=== PATIENT | male | born 1985 | race Caucasian/White ===

== ENCOUNTER 2022-03-10 08:58 | Emergency (ER) | payer SELFPAY ==
[~2022-03-10] VITALS: Ht 190.5 cm; Wt 163.0 kg
[2022-03-10] VITALS (14 sets, daily range): BP systolic 130–154; BP diastolic 79–99
[~2022-03-10 08:58] MED LIST: ULTRAM50 M1 PO
[2022-03-10 11:23] LABS: ALBUMIN 4.2 g/dL (3.2-5.0); ALKALINE PHOSPHATASE 91 u/l (38-126); ANION GAP 11 (6-22 (CALC)); BILIRUBIN, TOTAL 0.6 mg/dL (0.0-1.4); BUN 12 mg/dL (9-20); BUN/CREATININE RATIO 13 (12-20 (CALC)); CARBON DIOXIDE 30 mmol/l (22-30); CHLORIDE 103 mmol/l (95-108); GFR FOR AFR.AMER. > 60 ML/MIN (>=60 (CALC)); GFR OTHER RACES > 60 ML/MIN (>=60 (CALC)); POTASSIUM 4.4 mmol/l (3.5-5.1); SGOT/AST 32 u/l (17-59); SODIUM 139 mmol/l (137-146); TOTAL PROTEIN 7.9 g/dL (6.3-8.2)
[2022-03-10 12:22] LABS: HEMATOCRIT 42.7 % (39.0-50.0); HEMOGLOBIN 13.4 g/dl (14.0-18.0); IMMATURE GRANULOCYTES 1.3 % (0.0-5.0); MEAN CELL VOLUME 90.9 fL CALC (80.0-100.0); MEAN CORPUSCULAR HGB 28.5 pG CALC (26.0-32.0); MEAN CORPUSCULAR HGB CONC 31.4 g/dL CAL (32.0-36.0); NEUT# 5.34 thou/uL (1.82-7.42); RED BLOOD COUNT 4.7 mill/uL (4.70-6.10)
[2022-03-10] MEDS ORDERED: CEPHALEXIN500 MG PO (13:31)
== END 2022-03-10 14:29 | disposition home or self-care (01) | DRG 603 ==
LOC: ED 08:58
PROVIDERS: Family Medicine
DX: L03.116 Cellulitis of left lower limb (principal); L03.115 Cellulitis of right lower limb

== ENCOUNTER 2024-04-14 17:35 | Emergency (ER) | payer SELFPAY ==
[~2024-04-14] VITALS: Ht 190.5 cm; Wt 163.0 kg
[~2024-04-14 17:35] MED LIST changes: +CEPHALEXIN500 MG PO
[2024-04-14 17:40] VITALS: BP 219/92
[2024-04-14] MEDS ORDERED: BACTRIM DS1 TAB PO (17:53)
== END 2024-04-14 18:11 | disposition home or self-care (01) | DRG 603 ==
LOC: ED 17:35
DX: L03.116 Cellulitis of left lower limb (principal)